=== PATIENT | female | born 1940 | race Caucasian/White ===

== ENCOUNTER 2024-11-25 00:55 | Observation (INO) | payer MEDICARE, SELFPAY ==
[2024-11-24] VITALS (7 sets, daily range): BP systolic 135–184; BP diastolic 59–98; BMI 21.3
[2024-11-24 19:18] LABS: % Basophils 0.5 % (0-2); % Eosinophils 0.8 % (0-6); % Immature Granulocytes 0.3 % (0-0.5); % Lymphocytes 16.5 % (20.5-51.1); % Neutrophils 75.9 % (42.2-75.2); Absolute Eosinophils 0.1 10^3/uL (0-0.7); Absolute Lymphocytes 1.3 10^3/uL (1.2-3.4); Absolute Monocytes 0.5 10^3/uL (0.1-0.6); Absolute Neutrophils 5.9 10^3/uL (1.4-6.5); Hematocrit 37.7 % (37.0-47.0); Hemoglobin 12.8 g/dL (12.0-16.0); Mean Corpuscular Hgb 31.8 pg (27.0-31.0); Mean Corpuscular Volume 93.8 fL (81.0-99.0); Mean Platelet Volume 9.2 fL (7.4-10.4); Nucleated Red Blood Cells % 0 %; Platelet Count 200 10^3/uL (130-400); Red Blood Cell Count 4.02 10^6/uL (4.20-5.40); Red Cell Dist. Width 13.3 % (11.5-14.5); White Blood Cell Count 7.8 10^3/uL (4.8-10.8)
[2024-11-24 19:30] LABS: INR 0.96
[2024-11-24 19:39] LABS: ALT (SGPT) 24 U/L (0-35); AST (SGOT) 26 U/L (14-36); Albumin 4.2 g/dl (3.5-5.0); Alkaline Phosphatase 92 U/L (38-126); Blood Urea Nitrogen 18 mg/dl (7-17); Calcium 9.2 mg/dl (8.4-10.2); Carbon Dioxide 25 mmol/L (22-30); Chloride 110 mmol/L (98-107); Glucose 111 mg/dl (70-99); Potassium 4.3 mmol/L (3.5-5.1); Sodium 139 mmol/L (135-145); Total Bilirubin 0.6 mg/dl (0.2-1.3); Total Protein 6.7 g/dl (6.3-8.2); eGFR > 60.00
[2024-11-24 19:44] LABS: Troponin I < 0.012 ng/ml
--- NOTE | 2024-11-24 20:21 | ED.GENMED ---
History of Present Illness
General
Chief Complaint: Dizziness
Source: patient
Exam Limitations: none
Time Seen by Provider: 11/24/24 20:19
Nursing documentation reviewed up to this point in time: agreed with
History of Present Illness
History of Present Illness:
84-year-old female presents emergency department due to dizziness, nausea vomiting and diarrhea intermittently for several weeks. She was initially diagnosed with vertigo by her primary care physician. She was treated with steroids and meclizine,
as well as physical therapy. She states that physical therapy seems to help some, but then it comes back. The steroids also seem to help. It seemed worse today, so her family brought her to the emergency department.
Past History
Past History
ED Past Medical History: Hypercholesterolemia and Other (OA, mac degen, diverticulitis, vertigo)
ED Past Surgical History: Orthopedic (Bilateral knee replacement, left ORIF femur, left total hip) and Other (Bilateral cataracts)
Social History
Tobacco: Non-smoker
Alcohol: None
Personal:
Living: with family
Review of Systems
Review of Systems
Allergies reviewed?: Yes
All Other Systems: Not applicable
Constitutional: Reports no symptoms
EENT: Reports no symptoms
Respiratory: Reports no symptoms
Cardiac: Reports no symptoms
ABD/GI: Reports nausea, vomiting and diarrhea
: Reports no symptoms
Musculoskeletal: Reports no symptoms
Skin: Reports no symptoms
Neurological: Reports dizzy
Endocrine: Reports no symptoms
Hematologic/Lymphatic: Reports no symptoms
Psychiatric: Reports no symptoms
Phy Exam
Physical Exam
Physical Exam:
Physical Exam
General: no apparent distress, not acutely ill
Neck: supple. no meningeal signs. normal posterior pharynx
Heart: s1/s2 regular rate and rhythm, no murmur. equal radial
pulses.
HEENT: Pupils equal round reactive to light, EOMI, rightward nystagmus
Lungs: no acute respiratory distress. clear bilaterally
Abdomen: normal bowel sounds. not tender. no CVAT
Neuro: alert and oriented. no focal neurological deficits cranial nerves II through XII intact
Skin: no rash
Psychiatric: well kept. interactive and cooperative
Extremities: no edema. no calf tenderness. negative homans. good distal pulses
Course
Orders/Labs/Results
Orders:
Orders
11/24/24 19:10
EKG [Electrocardiogram (*1)] Urgent
Reason for Study: Vertigo / Dizzy
EKG- Treatment ONCE
11/24/24 19:12
Complete Blood Count/With Diff Urgent
Comprehensive Metabolic Panel Urgent
Prothrombin Time Urgent
Troponin I Urgent
11/24/24 20:46
CT Head W/o Iv Contrast Urgent
Comment:
Reason For Exam: dizziness
11/24/24 20:47
Meclizine [Antivert] 25 mg PO NOW STA
Ondansetron Injectable [Zofran] 4 mg IV NOW STA
Abnormal Lab Results
11/24/24
19:12
RBC 4.02 L 10^6/uL
(4.20-5.40)
MCH 31.8 H pg
(27.0-31.0)
Neutrophils % 75.9 H %
(42.2-75.2)
Lymphocytes % 16.5 L %
(20.5-51.1)
Chloride 110 H mmol/L
(98-107)
BUN 18 H mg/dl
(7-17)
Glucose 111 H mg/dl
(70-99)
11/24/24 19:12
11/24/24 19:12
Vital Signs
Initial and Last Documented VS:
Initial Vital Signs
Temp Pulse Resp BP Pulse Ox
98.5 F 76 16 184/98 99
11/24/24 19:07 11/24/24 19:07 11/24/24 19:07 11/24/24 19:07 11/24/24 19:07
Last Documented Vital Signs
Temp Pulse Resp BP Pulse Ox
97.8 F 65 13 138/72 97
11/24/24 23:53 11/24/24 22:15 11/24/24 22:15 11/24/24 22:00 11/24/24 22:15
MDM/Problems Addressed
Differential Diagnosis Includes:
CVA, dysrhythmia, vertigo
MDM/Problems Addressed:
84-year-old female with vertigo, difficulty walking. No signs intracranial hemorrhage or CVA. Admit to hospitalist for further evaluation.
*Radiology
Radiology exam reviewed: radiology read reviewed (CT head no acute findings)
*Pulse Oximetry
Patient hypoxic: no
*EKG
Interpreted by ED Provider?: Yes
EKG Intrepretation Date: 11/24/24
EKG Intrepretation Time: 19:16
Interpretation: normal
Comparison EKG: no comparison EKG present
Heart Rate: 79
Rate: normal
Rhythm: sinus
[place]: normal axis
Interval: normal interval
QRS Pattern: normal QRS
Ischemia: no ischemia
*[employer] Interpretation
Rate: normal
Interpretation: normal
Heart Rate: 66
Rhythm: sinus
*Critical Care Note
Total Time (30-74mins, 75-104mins- exclusive of procedures): Not Applicable
Patient Management
Social determinants of health affecting care: Living situation and Strong social support
Discussion with other providers: Hospitalist
Escalation/DeEscalation of care consider admission/obs:
Admit indicated
ED Attending Note
-
Portions of this chart may have been created with voice recognition software.� Occasional wrong word or��sound alike� substitutions may have occurred due to the inherent limitations of voice recognition software.
Discharge Plan
Departure
Patient Disposition: Admit
Date of Disposition: 11/24/24
Time of Disposition: 23:57
Admit to: Med/Surg
Presentation/result/management discussed w/ accepting MD/DO: Hospitalist
Patient with high blood pressure during this ER visit?: Yes
Condition: Fair
Discharge Problem:
Vertigo
Prescriptions:
No Action
awufyydilugb-jylbomfn-qwhypr Tablet
1 tab PO DAILY
PreserVision AREDS-2 250-90-40-1 mg Capsule
1 tab PO BID
[place]pin 3 1,200 MG capsule
1,200 mg PO BID
mupirocin 2 % ointment
1 applic intranasal BID Qty: 1 0RF
Patient Comments:
last dose was this am, 02/07/23
scopolamine base 1 mg over 3 days patch 3 day
1 patch transdermal Q72H PRN (Reason: nausea and vomiting) Qty: 4 0RF
Patient Comments:
applied at 0515 am , 02/07/23
Rx Instructions:
Apply 1 patch behind either ear morning of surgery before coming in.
aspirin 325 mg Tablet
325 mg PO DAILY Qty: 30 0RF
Rx Instructions:
Take daily x4 weeks for blood clot prevention.
docusate sodium 100 mg Capsule
100 mg PO BID Qty: 30 0RF
prochlorperazine maleate 5 mg Tablet
5 mg PO Q8H PRN (Reason: nausea/vomiting) Qty: 20 0RF
lidocaine 4 % Adhesive Patch,Medicated
2 patch topical DAILY Qty: 30 0RF
Rx Instructions:
Over the counter. 12 hours on, 12 hours off.
Apply to sides of right thigh/knee.
pantoprazole 40 mg Tablet,Delayed Release (Dr/Ec)
40 mg PO DAILY Qty: 30 0RF
Rx Instructions:
Take daily while on Aspirin to avoid GI upset.
tramadol 50 mg tablet
50 - 100 mg PO Q6H MDD 6 PRN (Reason: moderate-severe pain) Qty: 30 0RF
Rx Instructions:
1 tab for moderate pain, 2 if severe.
Dx TKA.
sennosides [senna] 8.6 mg tablet
17.2 mg PO BID PRN (Reason: constipation) Qty: 30 0RF
Rx Instructions:
Add to bowel regimen of Colace if no bowel movements occur within 2 days.
prednisone 10 mg tablet
40 mg PO TAPER Qty: 20 0RF
Rx Instructions:
4 TABS X 2 DAYS, 3 TABS X 2 DAYS, 2 TABS X 2 DAYS, 1 TAB X 2 DAYS, THEN STOP
ibuprofen 200 mg tablet
400 mg PO BID Qty: 30 0RF
Rx Instructions:
DO NOT resume until off Prednisone.
Take with food.
acetaminophen 325 mg Tablet
650 mg PO Q4HWA Qty: 60 0RF
Rx Instructions:
DO NOT exceed >4000 mg daily.
Referrals:
UNKNOWN - PT DOES,NOT KNOW [Family Provider]
Interventions
Interventions:
*Risk Screen - Suicide Last Done: 11/24/24 19:07
*General Assessment Last Done: 11/24/24 19:07
*Neglect/Abuse Screening Last Done: 11/24/24 19:07
*ED- Fall Risk Assessment Last Done: 11/24/24 19:07
*ED COVID-19 Vaccine History Last Done: 11/24/24 19:07
ED- Neurological Assessment Last Done: 11/24/24 23:54
ED- Cardiac Assessment Last Done: 11/24/24 23:54
ED Swallowing Screen Last Done: 11/24/24 21:09
Discharge Date and Time
Print Language: WELSH
[2024-11-24] MEDS: ZOFRAN 4 MG IV (20:54)
[2024-11-24] MEDS: ANTIVERT 25 MG PO (20:54)
[2024-11-25] VITALS (8 sets, daily range): BP systolic 103–146; BP diastolic 47–87; PULSE 68–90; O2SAT 95; BMI 20.6
--- NOTE | 2024-11-25 00:01 | HPS.HSE ---
Family Physician
-
Family Physician: NOT KNOW UNKNOWN - PT DOES
Chief Complaint
-
Dizziness
History of Present Illness
This is a 84-year-old female who presents to the emergency department with complaints of dizziness, nausea vomiting and diarrhea intermittently for several weeks.
She was initially diagnosed with vertigo by her primary care physician. She was treated with steroids and meclizine, as well as physical therapy. She states that physical therapy seems to help some, but then it comes back. The steroids also seem
to help. It seemed worse today, so her family brought her to the emergency department.
Patient reported that over the last 6 weeks she has been having recurrent episodes of positional vertigo. 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 She has undergone physical therapy which she gets about twice a week. She has had multiple
episodes of Tatum maneuvers. She has had improvement with Tatum maneuvers during this last 6 weeks but sometimes the symptoms will cause. She last had an Tatum maneuver about a week ago. She did well and in fact yesterday she had a PT and had no
balance issues with the PT tolerated very well. She denied any lightheadedness dizziness nausea or vomiting. However today she had to suddenly developed episode of vertigo again. She describes the pain and some sensation associated with nausea
and vomiting. She is unable to tolerate p.o. While laying down still at rest she has very minimal symptoms. But anytime she turns her head or moves around she has the vertigo again. She did take 12.5 of meclizine at home. She had been given
another 25 mg of meclizine. She is resting in bed comfortably at this time.
She had undergone treatment for vestibular neuritis with trial of steroid taper with no significant improvement.
In the emergency department she was afebrile. Her blood pressure was 138/70 with a pulse of 65 satting 97% on room air.
ECG showed normal sinus rhythm rate of 79. Troponin was negative.
CT of the head showed no acute interval changes. CBC was completely unremarkable. Electrolytes were normal. BUN and creatinine were normal.
Medical History
Past Medical History
Past Medical History: Reports Other
Additional Past Medical History:
Hypertension (diet controlled)
Orthostatic hypotension
Past Surgical History: Reports Orthopedic (Bilateral knee replacement, left hip replacement) and Tonsilectomy
Social History
Tobacco: Non-smoker
Alcohol: None
Drug: None
Personal: Single
Living: Alone
Employment: Retired
Family History
Family History: Not pertinent
Allergies / Home Medications
Allergies reflects when Allergies were last updated in [employer].
Home Medications with original date entered in [employer]
Allergy/Medication List:
Allergies
Allergy/AdvReac Type Severity Reaction Status Date / Time
cephalexin monohydrate (From Allergy Unknown Hives, Verified 11/24/24 19:10
Keflex) Itchy
gabapentin AdvReac dizziness Verified 11/24/24 19:10
Home Medications
Tiona 3 1,200 mg PO BID Supplement 01/19/23
Held on 02/08/23. Instructions: Resume on 02/14/23.
vit C 250 mg-vit E 90 mg-zinc 40 mg-copper 1 no-gdsoti-inyzyx capsule (PreserVision AREDS-2) 1 tab PO BID Supplement 01/19/23
ibuprofen 200 mg tablet 400 mg PO DAILY 11/24/24
meclizine 12.5 mg tablet 12.5 mg PO BID PRN dizziness 11/24/24
prswctgbbvhc-vhprvzzx-vbvrno tablet 1 tab PO DAILY 11/24/24
Review of Systems
-
Constitutional: Reports No Symptoms
EENT: Reports No Symptoms
Respiratory: Reports No Symptoms
Cardiac: Reports No Symptoms
Abdomen/GI: Reports Nausea and Vomiting
: Reports No Symptoms
Musculoskeletal: Reports No Symptoms
Skin: Reports No Symptoms
Neurological: Reports Dizzy
Endocrine: Reports No Symptoms
Hematologic/Lymphatic: Reports No Symptoms
Psych: Reports No Symptoms
Physical Exam
Vital Signs
Vital Signs
Temp Pulse Resp BP Pulse Ox
97.8 F 65 13 138/72 97
11/24/24 23:53 11/24/24 22:15 11/24/24 22:15 11/24/24 22:00 11/24/24 22:15
Physical Exam
General: Well Developed, Well Nourished and No Apparent Distress
HEENT: NormoCephalic, Moist mucous membranes and Atraumatic
Respiratory: Clear
Cardiac: S1/S2 and Regular Rhythm; No Murmur or Rub
GI: Soft, Non Tender, Non Distended and Normal Bowel Sounds; No Organomegaly
Rectal: Deferred by Provider
Musculoskeletal: No Clubbing, No Cyanosis and No Edema
Skin: No Rash
Neuro: Nonfocal/grossly intact
Laboratory Results
-
11/24/24 19:12
11/24/24 19:12
Laboratory Results
PT 13.0 Sec (11.4-14.6) 11/24/24 19:12
INR 0.96 11/24/24 19:12
Total Bilirubin 0.6 mg/dl (0.2-1.3) 11/24/24 19:12
AST 26 U/L (14-36) 11/24/24 19:12
ALT 24 U/L (0-35) 11/24/24 19:12
Alkaline Phosphatase 92 U/L (38-126) 11/24/24 19:12
Troponin I < 0.012 ng/ml 11/24/24 19:12
Data Reviewed
-
CT Scan: Report Reviewed by me
Medical Tests (Nuc Med, Echo, EKG etc): Image Personally Visualized and interpreted
Lab Data: Labs Reviewed by me
Impression/Plan
-
IMPRESSION:
84-year-old female with recurrent episodes of vertigo with last 6 weeks. She had undergone treatment with Tatum maneuver and steroids in the past. She had recurrence of symptoms today which shows more severe and more persistent than usual. She
has no associated focal logical deficits. ECG is normal sinus rhythm and nonischemic with normal troponin. CT of the head was negative. Vital signs otherwise stable. Electrolyte BUN/creatinine were all normal. CBC was normal. She is otherwise
well-appearing but suffering from recurrent vertigo. When I saw her she was laying in bed and not moving and was without symptoms. 1 did not want to elicit symptoms with maneuvers but did not show any nystagmus on my examination.
PLAN:
1. Vertigo -suspect ongoing peripheral vertigo secondary to BPPV. No focal deficits
- admit to med/surg observation
- meclizine prn
- gentle hydration overnight
- orthostatic vs
- mri brain to rule out occult stroke
- ?endolymph leak eval
- PT consultation
DVT PPX - SCDs
Code status - Full Code
[2024-11-25] MEDS: NSS 500 IV (01:00)
--- NOTE | 2024-11-25 02:03 | PTCARENOTE ---
Pt received from ED to room 423. Pt oriented to room and call shultz.
[2024-11-25] MEDS: MOTRIN 400 MG PO (07:07)
[2024-11-25] MEDS: ANTIVERT 25 MG PO (11:17)
--- NOTE | 2024-11-25 12:28 | W.PN.HOSP.TC ---
Today's Communication/Plan
-
see A/P
Assessment / Plan
Assessment / Plan
84-year-old female with recurrent episodes of vertigo for 6 weeks. She had undergone treatment with Tatum maneuver and steroids in the past.
She had recurrence of symptoms on DOA which was more severe and more persistent than usual. She has no associated focal logical deficits.
CT of the head was negative.
A/P:
# Vertigo 2/2 BPPV
meclizine prn
CT head and MRI brain without intracranial abnormality
PT for vestibular therapy
Orthostatic VS WNL
DVT PPX - SCDs
Code status - Full Code
DW RN
DW daughter at bedside
Anticipated Discharge: Today
Subjective/Interval History
-
Date of Service: November 25, 2024
Objective Data
-
Vital Signs:
Vital Signs
Temp Pulse Resp BP Pulse Ox
36.8 C 68 16 103/47 94
11/25/24 07:00 11/25/24 07:00 11/25/24 07:00 11/25/24 07:00 11/25/24 07:00
Review of Systems
-
History Source: Patient
Neuro: Reports Dizzy (intermittent)
Physical Exam
-
General: Well Developed, Well Nourished, No Apparent Distress, Comfortable and Conversant; Negative Respiratory Distress
HEENT: Normocephalic, Atraumatic, Nose Appears Normal and Ears Appear Normal; Negative Oxygen
Respiratory: Clear to Auscultation and Non Labored Respirations; Negative Accessory Resp Muscle Use
Cardiac: Regular Rhythm and S1/S2
GI: Soft, Nontender, Nondistended and Normal Bowel Sounds
Skin: Warm and Dry
Neuro: Awake, Alert, Oriented and AO x 3
Psych: Calm and Intact Judgement/Insight
Data Reviewed
-
CT Scan: Report Reviewed by me
MRI: Report Reviewed by me, Discussed with Patient and Discussed with Family
Labs: Labs Reviewed by me
--- NOTE | 2024-11-25 14:57 | CM ---
CM reviewed chart, patient seen asleep bedside, placed call to patients daughter, Ester, to complete initial assessment. Patient resides independently in a two story home, one step to enter, stairglide to second floor. Patient has had [facility] in past,
has also been to ambulatory center for outpatient PT. Patient denies SNF, has been to [facility] in past. Patient PCP [facility], has appt this Tuesday with Dr. Reddy, pharmacy [facility], confirms prescription coverage.
QUICK form verbally reviewed with daughter over the phone, placed in chart. CM reviewed PT recommendations of outpatient vestibular therapy, daughter agreeable, would like script upon discharge. Daughter reports patient can stay with her upon
discharge.
Plan; home with daughter, will need script for vestibular therapy
[2024-11-26 07:41] VITALS: BP 126/55
[2024-11-26] MEDS: MOTRIN PO ×2 (08:35→10:33)
--- NOTE | 2024-11-26 09:23 | W.PN.HOSP.TC ---
Today's Communication/Plan
-
see A/P
Assessment / Plan
Assessment / Plan
84-year-old female with recurrent episodes of vertigo for 6 weeks. She had undergone treatment with Tatum maneuver and steroids in the past.
She had recurrence of symptoms on DOA which was more severe and more persistent than usual. She has no associated focal logical deficits.
CT of the head was negative.
A/P:
# Vertigo 2/2 BPPV
Cont meclizine prn , I am hesitant to use Valium as pt is already experiencing severe drowsiness with meclizine
CT head and MRI brain without intracranial abnormality
Cont PT for vestibular therapy
Orthostatic VS WNL
Neuro CS for persistent severe symptoms
DVT PPX - SCDs
Code status - Full Code
DW PT
updated daughter on the phone
Anticipated Discharge: Within 24 hours
Subjective/Interval History
-
Date of Service: November 26, 2024
Objective Data
-
Vital Signs:
Vital Signs
Temp Pulse Resp BP Pulse Ox
36.7 C 68 17 126/55 99
11/26/24 07:41 11/26/24 07:41 11/26/24 07:41 11/26/24 07:41 11/26/24 07:41
I&O
11/25/24 11/26/24 11/27/24
06:59 06:59 06:59
Intake Total 720 / 720
Balance 720 / 720
Review of Systems
-
History Source: Patient
Neuro: Reports Dizzy (intermittent)
Physical Exam
-
General: Well Developed, Well Nourished, No Apparent Distress, Comfortable and Conversant; Negative Respiratory Distress
HEENT: Normocephalic, Atraumatic, Nose Appears Normal and Ears Appear Normal; Negative Oxygen
Respiratory: Clear to Auscultation and Non Labored Respirations; Negative Accessory Resp Muscle Use
Cardiac: Regular Rhythm and S1/S2
GI: Soft, Nontender, Nondistended and Normal Bowel Sounds
Skin: Warm and Dry
Neuro: Awake, Alert, Oriented and AO x 3
Psych: Calm and Intact Judgement/Insight
Data Reviewed
-
CT Scan: Report Reviewed by me
MRI: Report Reviewed by me, Discussed with Patient and Discussed with Family
Labs: Labs Reviewed by me
[2024-11-26] MEDS: ZOFRAN 4 MG IV (09:42)
--- NOTE | 2024-11-26 09:54 | CON.NEURO ---
Addendum entered and electronically signed by Josh Diego MD 11/26/24 16:49:
Studies reviewed.
I have personally examined the patient. I reviewed and agree with the PROVIDER NETWORK MANAGER's Note.
My addenda:
Awake, alert, interactive. No acute distress.
Speech intact.
Follows 2-step requests w/o difficulty. No tremor.
Extra-ocular movements grossly intact.
Facial movements full and symmetric. Hearing intact to normal conversational volume.
Normal UE movements bilaterally.
Neck: full ROM.
Chest: no dyspnea
Heart: no JVD
Ext: (-) Clubbing, (-) Cyanosis, (-) Edema
IMPRESSIONS/RECOMMENDATIONS:
Abrupt onset of BPPV (benign paroxysmal positional vertigo) most likely involving the left labyrinth
No evidence by MRI of the brain to demonstrate a structural abnormality producing symptomatology and therefore symptomatic relief is the goal
Replace meclizine with dimenhydrinate
Continue physical therapy for vestibular therapy
Continue ondansetron or similar medication for nausea control
Provide atorvastatin due to markedly elevated cholesterol as preventative for stroke
No indication for antiplatelet agents at this time
D/W patient
All questions answered.
Will continue to follow as needed. Please contact us with additional questions or issues
Original Note:
Documented by User: Mounika Wynn NP 11/26/24 14:00
Neuro Assessment/Plan
Assessment
This is a 84-year-old female who presented to [facility] on 11/25/2024 with complaints of dizziness
CT head: No acute intracranial abnormality.
Brain MRI: No acute intracranial abnormality noted.
Cholestero 245, LDL 166
Plan
Impression: BPPV Head CT and Brain MRI without intracranial abnormality and no associated focal logical deficits
-replace meclizine with dimenhydrinate 50 mg every 4 hours as needed to avoid drowsiness
-continue PT for vestibular therapy
-continue IV thiamine
-fall precautions
-Cholesterol and LDL elevated, start atorvastatin 40 mg nightly and repeat lipid panel
Consultation
Order
Date of Consultation: 11/26/24
Requesting Provider: hospitalist/Dr. Mccloud
Reason for Consult: dizziness
Subjective/Objective
Subjective Data
Date of Service: November 26, 2024
This is a 84-year-old female who presented to [facility] on 11/25/2024 with complaints of dizziness, nausea vomiting and diarrhea intermittently for several weeks. She was initially diagnosed with vertigo by her primary care physician. She was treated
with steroids and meclizine, as well as physical therapy. She states that physical therapy seems to help some, but then it comes back. The steroids also seem to help. It seemed worse on the day of admission so her family brought her to the
emergency department.
Patient reported that over the last 6 weeks she has been having recurrent episodes of positional vertigo. She was seen at [facility] and was diagnosed with BPPV. She has undergone physical therapy which she gets about twice a week. She has had multiple
episodes of Tatum maneuvers. She has had improvement with Tatum maneuvers during this last 6 weeks but sometimes the symptoms will cause. She last had an Tatum maneuver about a week ago. She did well and in fact yesterday she had a PT and had no
balance issues with the PT tolerated very well. She denied any lightheadedness dizziness nausea or vomiting.
Taken from PCP note on 11/01/2024, 'Symptoms started Tuesday with fatigue and generally not feeling right. On Tuesday she had 1 x episode of vomiting after lying down on the cough and standing up too quickly. [place] better after vomited. Has been very
fatigued every since. Feels like she cannot turn her head left or right or make any sharp position changes without feeling that the room is spinning. Episodes last a few seconds to a minute until she remains still. Denies hearing loss, tinnitus.
Denies headaches. Some neck pain. Denies walking issues, unsteady gait, or weakness. Denies vision changes, slurred speech, chest pain, SOB, or heart palpitations. Has had one episode of vomiting associated with dizzyness since Tuesday. Has had 2 x
episodes of diarrhea. She is focusing on rest and eating food as tolerated, though not much of an appetite. [place], crackers, oatmeal, banana, eggs, soup. Gatorade, tea, electrolyte drinks. UOP is normal, clear yellow. Had one episode of vertigo one
month ago that was similar. 4 years ago while in rehab s/p hip replacement had BPPV and got PT for it. This feels similar. Daughter (Ester) did head tilt test with her this AM and she had symptoms right away.'
Currently dizziness is the same feeling she had prior when she fractured her hip. Hard of hearing and wears bilateral hearing aids but currently not wearing them in the hospital. Her hearing loss is chronic, denies tinnitus. Denies changes in
vision, but has bilateral macular degeneration and receives injections. Denies headache, denies bulbar symptoms. Dizziness with room spinning to the left. Today had physical therapy but worsened symptoms. Takes Meclizine which is usually effective
but does make her fatigued. Usually laying down helps. She is also taking Zofran for the nausea. She will frequently miss meals because of symptoms.
In the ED her vital signs were stable. ECG showed normal sinus rhythm rate of 79. Troponin was negative. CT of he head showed no acute interval changes. Brain MRI showed no acute intracranial abnormality. Labs unremarkable. Labs from 2022 notable
for Cholesterol 245 and LDL 166.
Objective Data
Vital Signs
Temp Pulse Resp BP Pulse Ox
98.1 F 68 17 126/55 99
11/26/24 07:41 11/26/24 07:41 11/26/24 07:41 11/26/24 07:41 11/26/24 07:41
Lab Results
11/24/24 19:12
11/24/24 19:12
PT 13.0 Sec (11.4-14.6) 11/24/24 19:12
INR 0.96 11/24/24 19:12
Sodium 139 mmol/L (135-145) 11/24/24 19:12
Potassium 4.3 mmol/L (3.5-5.1) 11/24/24 19:12
BUN 18 mg/dl (7-17) H 11/24/24 19:12
Glucose 111 mg/dl (70-99) H 11/24/24 19:12
Calcium 9.2 mg/dl (8.4-10.2) 11/24/24 19:12
Patient Allergies
cephalexin monohydrate (From [employer]) Allergy (Unknown, Verified 11/24/24 19:10)
Hives, Itchy
gabapentin Adverse Reaction (Verified 11/24/24 19:10)
dizziness
Review of Systems
-
History Source: Patient
Constitutional: Weight Loss
EENT: No Symptoms Reported
Respiratory: No Symptoms
Cardiac: No Symptoms
Abdomen/GI: Nausea
Genitourinary: No Symptoms
Musculoskeletal: No Symptoms
Neuro: Dizzy
Physical Exam
-
General: No Apparent Distress and Appears Stated Age
HEENT: Normocephalic and Atraumatic
Neck: Full Range of Motion
Respiratory: No Dyspnea
Cardiac: No JVD
GI: Non-distended
Skin: Warm and Dry
Extremities: No Clubbing, No Cyanosis and No Edema
Psych: Intact Judgement/Insight
Extended Neurological Exam
Mood & Affect: Mood Unremarkable
Attention Span & Concentration: Awake, Alert, Interactive and No Difficulty with 2 Step Request
Memory: Unremarkable
Tremor: Hand Tremor Absent and Head Tremor Absent
Involuntary Movement: None
Speech: Quality Unremarkable, Quantity Unremarkable and Rate of Production Unremarkable
Cranial Nerve II: Left Eye: Visual [place] Grossly Intact
Cranial Nerve II: Right Eye: Visual [place] Grossly Intact
Cranial Nerves III, IV, : Extraocular Movement: Extraocular Movement Full in all Directions
Cranial Nerve VII: Facial Symmetry: Normal Facial Symmetry
Cranial Nerve VIII: Hearing: Grossly Reduced (b/l hearing aids)
Cranial Nerves IX, X: Palate Movement: Palate Elevation Symmetric
Cranial Nerve XII: Tongue Protusion: Midline
Muscle Strength, Overall: Full Throughout
Muscle Bulk & Tone: Bulk Unremarkable and Tone Unremarkable
Pronator Drift: No Drift in Upper Extremities and No Drift in Lower Extremities
Deep Tendon Reflexes: Unremarkable Throughout
Data Reviewed
-
CT Head: Report Reviewed and Image Reviewed
MRI Head: Report Reviewed and Image Reviewed
Labs: Report Reviewed
Lipid Profile: Report Reviewed
Old Records: Summarized
Medications
-
Active Medications
Generic Name Dose Route Start Last Admin
Trade Name Freq PRN Reason Stop Dose Admin
Acetaminophen 650 mg 11/25/24 02:10
Acetaminophen 325 Mg Tablet PO 12/23/24 02:09
Q4HPRN PRN
mild pain/NEELY/temp> 100.4F
Bisacodyl 10 mg 11/25/24 02:10
Bisacodyl 10 Mg Rectal Suppository RECTAL 12/23/24 02:09
[id number] PRN
constipation
Ibuprofen 400 mg 11/25/24 08:00 11/26/24 08:35
Ibuprofen 200 Mg Tablet PO 12/23/24 07:59 400 mg
DAILY ANDREA Administration
Meclizine HCl 25 mg 11/25/24 02:10 11/25/24 11:17
Meclizine 12.5 Mg Tablet PO 12/23/24 02:09 25 mg
BID PRN Administration
dizziness
Ondansetron HCl 4 mg 11/25/24 02:10 11/26/24 09:42
Ondansetron 4 Mg/2 Ml Vial IV 12/23/24 02:09 4 mg
Q6HPRN PRN Administration
nausea and vomiting
Polyethylene Glycol 17 grams 11/25/24 02:10
Polyethylene Glycol Powder 17 Grams Packet PO 12/23/24 02:09
DAILYPRN PRN
constipation
Senna/Docusate Sodium 1 tablet 11/25/24 02:10
Docusate W/Senna ([place]-Colace) Tablet PO 12/23/24 02:09
BIDPRN PRN
constipation
Sodium Chloride 0 flush 11/25/24 01:00
Sodium Chloride 0.9% (Flush) Syringe IV 12/23/24 00:59
PER PROTOCOL ANDREA
Home Medications
�Medication �Instructions �Recorded
[place] 3 1,200 mg PO BID Supplement 01/19/23
vit C 250 mg-vit E 90 mg-zinc 40 1 tab PO BID Supplement 01/19/23
mg-copper 1 yq-jcojix-mysjmk
capsule (PreserVision AREDS-2)
ibuprofen 200 mg tablet 400 mg PO DAILY Pain 11/24/24
meclizine 12.5 mg tablet 12.5 mg PO BID PRN dizziness 11/24/24
zilpeqqiiwqw-rixoiyzv-zfddvi tablet 1 tab PO DAILY Supplement 11/24/24
Past History
Past History
ED Past Medical History: Hypercholesterolemia and Other (OA, mac degen, diverticulitis, vertigo)
ED Past Surgical History: Orthopedic (Bilateral knee replacement, left ORIF femur, left total hip) and Other (Bilateral cataracts)
Family/Social History
Tobacco: Non-smoker
Alcohol: None
Personal:
Living: with family

Documented by User: Josh Diego MD 11/26/24 16:47
Neuro Assessment/Plan
Assessment
This is a 84-year-old female who presented to [facility] on 11/25/2024 with complaints of dizziness
CT head: No acute intracranial abnormality.
Brain MRI: No acute intracranial abnormality noted.
Cholesterol 245, LDL 166
[2024-11-26] MEDS: dimenhyDRINATE 50 MG IV (10:19)
[2024-11-26] MEDS: NSS (PRESERVATIVE FREE) 10 ML INJ (10:19)
[2024-11-26 10:22] VITALS: BP 126/55; PULSE 68
[2024-11-26] MEDS: THIAMINE INJECTION 100 MG IV (12:16)
[2024-11-26 15:54] VITALS: BP 132/66
[2024-11-26 15:55] VITALS: BP 130/74; BP 132/66; BP 144/73; PULSE 67; PULSE 72; PULSE 84
[2024-11-26] MEDS: LIPITOR 40 MG PO (16:16)
[2024-11-26 23:15] VITALS: BP 129/68
[2024-11-27 00:15] VITALS: BP 129/68
[2024-11-27 07:51] VITALS: BP 133/74
[2024-11-27 07:55] LABS: HDL Cholesterol 45 mg/dl; LDL Cholesterol, Calculated 135 mg/dl; Total Cholesterol 200 mg/dl (50-199); Triglyceride 103 mg/dl (10-149); Very Low Density Lipoprotein 20 mg/dl (0-30)
[2024-11-27] MEDS: MOTRIN 400 MG PO (08:19)
[2024-11-27] MEDS: THIAMINE INJECTION 100 MG IV (08:20)
--- NOTE | 2024-11-27 09:01 | W.PN.HOSP.TC ---
Addendum entered and electronically signed by Mirian Smith MD 11/27/24 13:22:
total DC time 38 min
Original Note:
Today's Communication/Plan
-
see A/P
Assessment / Plan
Assessment / Plan
84-year-old female with recurrent episodes of vertigo for 6 weeks. She had undergone treatment with Tatum maneuver and steroids in the past.
She had recurrence of symptoms on DOA which was more severe and more persistent than usual. She has no associated focal logical deficits.
CT of the head was negative.
A/P:
# Vertigo 2/[address] head and MRI brain without intracranial abnormality
Cont PT for vestibular therapy
meclizine prn -> dimenhydrinate PRN per neuro
Orthostatic VS WNL
Appreciate Neuro input
# HLD
LDL 135,
started Lipitor 40 mg
DVT PPX - SCDs
Code status - Full Code
updated daughter on the phone
Anticipated Discharge: Today
Subjective/Interval History
-
Date of Service: November 27, 2024
Objective Data
-
Vital Signs:
Vital Signs
Temp Pulse Resp BP Pulse Ox
36.3 C 64 16 133/74 99
11/27/24 07:51 11/27/24 07:51 11/27/24 07:51 11/27/24 07:51 11/27/24 07:51
I&O
11/26/24 11/27/24 11/28/24
06:59 06:59 06:59
Intake Total 720 / 720 600 / 600
Balance 720 / 720 600 / 600
Review of Systems
-
History Source: Patient
Neuro: Reports Dizzy (intermittent)
Physical Exam
-
General: Well Developed, Well Nourished, No Apparent Distress, Comfortable and Conversant; Negative Respiratory Distress
HEENT: Normocephalic, Atraumatic, Nose Appears Normal and Ears Appear Normal; Negative Oxygen
Respiratory: Clear to Auscultation and Non Labored Respirations; Negative Accessory Resp Muscle Use
Cardiac: Regular Rhythm and S1/S2
GI: Soft, Nontender, Nondistended and Normal Bowel Sounds
Skin: Warm and Dry
Neuro: Awake, Alert, Oriented and AO x 3
Psych: Calm and Intact Judgement/Insight
Data Reviewed
-
CT Scan: Report Reviewed by me
MRI: Report Reviewed by me, Discussed with Patient and Discussed with Family
Labs: Labs Reviewed by me
--- NOTE | 2024-11-27 10:20 | CM ---
Patient seen at bedside, patient physician indicated that she would complete script for vestibular therapy and place in chart. patient with no needs for discharge planning.
Plan; home with outpatient vestibular therapy
[2024-11-27] MEDS: dimenhyDRINATE 50 MG IM (11:01)
[2024-11-27] MEDS: ZOFRAN ODT (ORALLY DISINTEGRATING) 4 MG PO (11:07)
--- NOTE | 2024-11-27 13:01 | W.DCSUMMARY ---
Discharge Summary
Discharge Data
Date of Admission: 11/25/24
Date of Discharge: 11/27/24
-
Pending Results: No
Hospital Course
Principal Diagnosis:
Recurrent vertigo due to benign paroxysmal positional vertigo (BPPV)
Hyperlipidemia
Chronic Diagnoses:�
BPPV
Consultations:�
Neurology
Procedures:�
None
Clinical course:�
This is a 84-year-old female with medical history as stated above, who presented with intermittent nausea and vertigo.
She was diagnosed with BPPV, and had undergone Tatum maneuver and steroid without any significant improvement.
She denies to any associated focal neurologic deficit.
Problem 1:
Vertigo due to BPPV.
Her CT head and MRI brain were both without intracranial abnormality.
She was seen by PT during her hospital stay for vestibular therapy.
She can continue with outpatient vestibular therapy.
Her meclizine was changed to dimenhydrinate PRN per neuro.
Problem 2:
HLD.
LDL high at 135.
She was started with Lipitor 40 mg.
As for the rest of her medical problems, they were stable during her hospital stay.
Discharge Plan
-
Patient Disposition: Home with Home Care
Discharge Diagnosis/Procedures: Recurrent vertigo due to BPPV (MRI brain without acute intracranial abnormality);
Hyperlipidemia (LDL 135)
Condition: Good
Diet: As tolerated, Low Fat and Low Cholesterol
Activity: As tolerated
Driving Restrictions: As prior to admission
Referrals:
UNKNOWN - PT DOES,NOT KNOW [Family Provider] - in less than 1 week
Additional Discharge Medication Instructions: Continue dimenhydrinate in place of meclizine
You were started with Lipitor for high cholesterol
Prescriptions:
New
atorvastatin 40 mg Tablet
40 mg PO QPM Qty: 30 0RF
ondansetron 4 mg tablet,disintegrating
4 mg PO DAILY PRN (Reason: nausea and vomiting) Qty: 20 0RF
dimenhydrinate 25 mg tablet,chewable
50 mg PO Q8H PRN (Reason: dizziness or vertigo) Qty: 30 0RF
Continued
PreserVision AREDS-2 250-90-40-1 mg Capsule
1 tab PO BID
[place] 3 1,200 MG capsule
1,200 mg PO BID
yjfyfflxflzs-bjpnfula-njzhng Tablet
1 tab PO DAILY
ibuprofen 200 mg tablet
400 mg PO DAILY
Discontinued
meclizine 12.5 mg Tablet
12.5 mg PO BID PRN (Reason: dizziness)
Discharge Orders:
Discharge Patient (As Directed); Ordered 11/27/24
Ordered By: Mirian Smith
Discharge Date and Time
Discharge Date/Time: 11/27/24 12:25
Print Language: ISRAELI
== END 2024-11-27 12:25 | disposition home health service (06) ==
LOC: 4 WEST ACU 00:55
PROVIDERS: Nurse Practitioner; Student in an Organized Health Care Education/Training Program; ADMITTING PHYSICIAN Internal Medicine; ATTENDING PHYSICIAN Internal Medicine; CONSULT PHYSICIAN Psychiatry & Neurology Neurology; EMERGENCY PHYSICIAN Emergency Medicine
DX: H81.10 Benign paroxysmal vertigo, unspecified ear (principal); R42 Dizziness and giddiness; E78.00 Pure hypercholesterolemia, unspecified; R11.2 Nausea with vomiting, unspecified
CPT/HCPCS: 70450; 70551; 80053; 80061; 84484; 85025; 85610; 93005; 96361; 96374; 97112; 97116; 97163; 97530; 99285; G0378; J1240